=== PATIENT | male | born 1975 | race Two or more races ===

== ENCOUNTER 2024-11-18 18:12 | Emergency (ER) | payer OTHER ==
[~2024-11-18] VITALS: Ht 167.6 cm; Wt 91.6 kg
--- NOTE | 2024-11-18 19:03 | ED.PDOC ---
History of Present Illness HPI Comments 49 year old male presents to the ED with a chief complaint of intermittent dizziness onset 1 month. Patient states for the past month, at random times of the day, he will experience a heavy sensation on his head, feels dizzy, headache. Patient states this episodes last 30-60 seconds. He was seen a few days ago at [facility] [place], was given IVC fluids, states he was not told his diagnosis and was not prescribed any medication. PMHx of DM, HTN. Denies any chest pain, shortness of breath, fevers, nausea, vomiting, diarrhea, constipation. No other symptoms or modifying factors present at this time. Chief Complaint: Dizziness Time Seen by MD: 18:43 Reviewed Notes: Medications, Allergies Allergies: Uncoded Allergies: SHEELFISH (Allergy, Unknown, 11/18/24) Information Source: Patient Mode of Arrival: Ambulatory Severity: Moderate Timing: Months Duration: Since onset Prehospital treatment: None Past Medical History PAST MEDICAL HISTORY: DM, HTN Surgical History: Denies all surgeries Family History Family History: Reviewed,noncontributory to illness, No family hx of Cancer, No family hx of DM, No family hx of Heart henrietta, No family hx of HTN, No family hx ofKidney henrietta, No family hx of Liver henrietta, No family hx of Lung henrietta, No family hx of Stroke Social History Smoker: Non-Smoker Alcohol: Denies ETOH Use Drugs: Denies Drug Use Lives In: Home Constitutional: reports: weakness; denies: chills, diaphoresis, fatigue, fever, malaise, sweats, others EENTM: denies: blurred vision, double vision, ear bleeding, ear discharge, ear drainage, ear pain, ear ringing, eye pain, eye redness, hearing loss, mouth pain, mouth swelling, nasal discharge, nose bleeding, nose congestion, nose pain, photophobia, tearing, throat pain, throat swelling, voice changes, others Respiratory: denies: cough, hemoptysis, orthopnea, SOB at rest, shortness of breath, SOB with excertion, stridor, wheezing, others Cardiovascular: denies: chest pain, dizzy spells, diaphoresis, Dyspnea on exertion, edema, irregular heart beat, left arm pain, lightheadedness, palpitations, PND, syncope, others Gastrointestinal: denies: abdomen distended, abdominal pain, blood streaked bowels, constipated, diarrhea, dysphagia, difficulty swallowing, hematemesis, melena, nausea, poor appetite, poor fluid intake, rectal bleeding, rectal pain, vomiting, others Genitourinary: denies: burning, dysuria, flank pain, frequency, hematuria, incontinence, penile discharge, penile sore, pain, testicle pain, testicle swelling, urgency, others Neurological: reports: dizziness, headache, weakness; denies: fainting, left sided numbness, left sided weakness, numbness, paresthesia, pre-existing deficit, right sided numbness, right sided weakness, seizure, speech problems, tingling, tremors, others Musculoskeletal: denies: back pain, gout, joint pain, joint swelling, muscle pain, muscle stiffness, neck pain, others Integumetry: denies: bruises, change in color, change in hair/nails, dryness, laceration, lesions, lumps, rash, wounds, others Allergic/Immunocompromised: denies: Difficulty Healing, Frequent Infections, Hives, Itching, others Hematologic/Lymphatic: denies: anemia, blood clots, easy bleeding, easy bruising, swollen glands, others Endocrine: denies: excessive hunger, excessive sweating, excessive thirst, excessive urination, flushing, intolerance to cold, intolerance to heat, unexplained weight gain, unexplained weight loss, others Psychiatric: denies: anxiety, bipolar disorder, depression, hopeless, panic disorder, schizophrenia, sleepless, suicidal, others All Other Systems: Reviewed and Negative Physical Exam General Appearance: No Apparent Distress, Normal HEENT: Normal ENT Inspection, Pharynx Normal, TMs Normal Neck: Full Range of Motion, Non-Tender, Normal, Normal Inspection Respiratory: Chest Non-Tender, Lungs Clear, No Accessory Muscle Use, No Respiratory Distress, Normal Breath Sounds Cardiovascular: No Edema, No JVD, No Murmur, No Gallop, Normal Peripheral Pulses, Regular Rate/Rhythm Breast Exam: Deferred Gastrointestinal: No Organomegaly, Non Tender, No Pulsatile Mass, Normal Bowel Sounds, Soft Genitalia: Deferred Pelvic: Deferred Rectal: Deferred Extremities: No calf tenderness, Normal capillary refill, Normal inspection, Normal range of motion, Non-tender, No pedal edema Musculoskeletal : Apperance: Normal Neurologic: Alert, roving tester laboratory II-XII nml as Tested, No Motor Deficits, Normal Affect, Normal Mood, No Sensory Deficits Cerebellar Function: Normal Reflexes: Normal Skin: Dry, Normal Color, Warm Lymphatic: No Adenopathy Was a procedure done? Was a procedure done?: No Differential Dx Considerations may include: Electrolyte abnormality, ACS, viral syndrome, migraine X-Ray, Labs, Meds, VS Vital Signs Date Time Temp Pulse Resp B/P (MAP) Pulse Ox O2 Delivery O2 Flow Rate FiO2 11/18/24 20:08 98.4 90 16 140/92 (108) 98 98.4 11/18/24 20:08 90 16 97 Room Air* 0 21 11/18/24 18:39 108 11/18/24 18:35 97.0 118 20 154/85 (108) 98 Lab Test 11/18/24 19:07 Range/Units White Blood Count 4.9 4.4-10.8 10^3/uL Red Blood Count 5.66 4.5-5.90 10^6/uL Hemoglobin 15.4 13.5-17.5 g/dL Hematocrit 46.0 41.0-53.0 % Mean Corpuscular Volume 81.3 80.0-100.0 fL Mean Corpuscular Hemoglobin 27.1 L 28.0-32.0 pg Mean Corpuscular Hemoglobin Concent 33.4 32.0-36.0 g/dL Red Cell Distribution Width 12.5 11.8-14.3 % Platelet Count 208 140-450 10^3/uL Mean Platelet Volume 8.1 6.9-10.8 fL Neutrophils (%) (Auto) 55.6 37.0-80.0 % Lymphocytes (%) (Auto) 27.7 10.0-50.0 % Monocytes (%) (Auto) 14.0 H 0.0-12.0 % Eosinophils (%) (Auto) 1.6 0.0-7.0 % Basophils (%) (Auto) 1.1 0.0-2.0 % Neutrophils # (Auto) 2.7 1.6-8.6 10 ^3/uL Lymphocytes # (Auto) 1.3 0.4-5.4 10 ^3/uL Monocytes # (Auto) 0.7 0-1.3 10 ^3/uL Eosinophils # (Auto) 0.1 0-0.8 10 ^3/uL Basophils # (Auto) 0.1 0-0.2 10 ^3/uL Nucleated Red Blood Cells 0.1 % Sodium Level 130 L 136-145 mmol/L Potassium Level 4.8 3.5-5.1 mmol/L Chloride Level 96 L 98-107 mmol/L Carbon Dioxide Level 26 20-31 mmol/L Anion Gap 8 5-15 Blood Urea Nitrogen 15 9-23 mg/dL Creatinine 1.00 0.700-1.30 mg/dL Glomerular Filtration Rate Calc 93 >90 mL/min BUN/Creatinine Ratio 15.0 10.0-20.0 Serum Glucose 233 H 74-106 mg/dL Calcium Level 10.3 8.7-10.4 mg/dL Troponin I High Sensitivity 12 </=54 ng/L Current Medications Medications (Trade) Dose Ordered Sig/Cintia Route Start Time Stop Time Status Last Admin Sodium Chloride 1,000 ml @ 1,000 mls/hr Q1H ONCE IV 11/18/24 19:00 11/18/24 19:59 DC 11/18/24 20:00 Metoclopramide HCl (Reglan Injection) 10 mg ONCE ONCE IV 11/18/24 19:00 11/18/24 19:01 DC 11/18/24 20:00 Acetaminophen (Tylenol Tablet) 650 mg ONCE ONCE PO 11/18/24 19:00 11/18/24 19:01 DC 11/18/24 20:00 Time of 1ST Reevaluation: 22:09 Reevaluation 1ST: Improved Patient Education/Counseling: Diagnosis, Treatment Family Education/Counseling: No Family Present Additional Information The following tests were ordered, and results were reviewed by me: BMP, CBC, TROP, EKG I discussed treatment and results with medical personnel and: patient Departure 1 Departure Time of Disposition: 22:08 (Patient's is benign. Including negative labs and EKG. We will discharge patient home with outpatient follow up) Impression: Primary Impression: Dizziness Disposition: 01 HOME / SELF CARE / HOMELESS Condition: Stable Additional Instructions: Your workup today was benign. You can take Tylenol or Motrin as needed for pain. You should follow up with your regular doctor within 1 week. You should stay well rested and well hydrated. If your symptoms worsen or you have any other concerns please return to the emergency room. Critical Care Note Critical Care Time?: No Stability Stability form required: No I personally scribed for MELONIE PEMBERTON MD ([email or web address]) on 11/18/24 at 19:02. Electronically submitted by Zoila Roe ([email or web address]). I personally scribed for MELONIE PEMBERTON MD ([facility]) on 11/18/24 at 19:18. Electronically submitted by Zoila Roe ([email or web address]). I personally scribed for MELONIE PEMBERTON MD ([facility]) on 11/18/24 at 19:26. Electronically submitted by Zoila Roe ([email or web address]). I personally scribed for [facility]ERTON [facility] ([facility] on 11/18/24 at 22:07. Electronically submitted by Zoila Roe ([email or web address]). MELONIE PEMBERTON MD Nov 18, 2024 19:02
[2024-11-18 19:29] LABS: Basophils # (auto) 0.1 10 ^3/uL (0-0.2); Basophils % (auto) 1.1 % (0.0-2.0); Eosinophils # (auto) 0.1 10 ^3/uL (0-0.8); Eosinophils % (auto) 1.6 % (0.0-7.0); Hemoglobin 15.4 g/dL (13.5-17.5); Lymphocytes # (auto) 1.3 10 ^3/uL (0.4-5.4); Lymphocytes % (auto) 27.7 % (10.0-50.0); Mean Corpuscular Hemoglobin 27.1 pg (28.0-32.0); Mean Corpuscular Hgb Conc. 33.4 g/dL (32.0-36.0); Mean Corpuscular Volume 81.3 fL (80.0-100.0); Monocytes # (auto) 0.7 10 ^3/uL (0-1.3); Neutrophils # (auto) 2.7 10 ^3/uL (1.6-8.6); Neutrophils % (auto) 55.6 % (37.0-80.0); Nucleated Red Blood Cells % 0.1 %; Platelet Count (auto) 208 10^3/uL (140-450); Red Blood Cells 5.66 10^6/uL (4.5-5.90); Red Cell Distribution Width 12.5 % (11.8-14.3); White Blood Cell 4.9 10^3/uL (4.4-10.8)
[2024-11-18 19:37] LABS: Potassium 4.8 mmol/L (3.5-5.1)
[2024-11-18 19:38] LABS: Anion Gap 8 (5-15); Calcium 10.3 mg/dL (8.7-10.4); Carbon Dioxide 26 mmol/L (20-31)
[2024-11-18 19:43] LABS: Blood Urea Nitrogen 15 mg/dL (9-23)
[2024-11-18 19:47] LABS: Chloride 96 mmol/L (98-107); Glucose 233 mg/dL (74-106); Sodium 130 mmol/L (136-145)
[2024-11-18] MEDS: SODIUM CHLORIDE 0.9% 1,000 ML IV ONE (20:00)
[2024-11-18] MEDS: ACETAMINOPHEN 325 MG TAB PO ONE (20:00)
[2024-11-18] MEDS: METOCLOPRAMIDE HCL 5MG/ml INJ 2ml VIAL IV ONE (20:00)
[2024-11-18 20:08] VITALS: PULSE 90; RESP 16; O2SAT 97
[2024-11-18 23:13] VITALS: BP 149/74; TEMP 98
[2024-11-18 23:16] VITALS: PULSE 98; RESP 16; O2SAT 96
--- NOTE | 2024-11-19 10:25 | ECG ---
[facility] Test Date: 2024-11-18 Test Time: 18:39:51 Pat Name: CLAIRE SANCHEZ Department: ER Room: Gender: M Shipping Receiving Clerk: DANIEL : 1975 Requested By: EMERGENCY EMERGENCY Order Number: [id number] Reading MD: Roldan Leggett Measurements Intervals [place] Rate: 108 P: 53 [place]: 154 QRS: 27 QRSD: 88 T: 58 QT: 303 QTc: 406 Interpretive Statements Sinus tachycardia ST elev, probable normal early repol pattern Electronically Signed On 11-19-2024 22:24:00 PST by Roldan Leggett Please click the below link to view image of tracing.
== END 2024-11-18 23:20 | disposition home or self-care (01) ==
LOC: ER 18:12
DX: R42 Dizziness and giddiness (principal); R51.9 Headache, unspecified; I10 Essential (primary) hypertension; E11.9 Type 2 diabetes mellitus without complications
CPT/HCPCS: 36415; 80048; 84484; 85025; 93005; 96361; 96374; 99284; J2765; J7030